=== PATIENT | female | born 1950 | race Caucasian/White ===

== ENCOUNTER 2017-10-29 09:51 | Outpatient (RCR) | payer MEDICARE | END 2017-11-01 | LOC: OT 09:51 | PROVIDERS: ATTEND Plastic Surgery | DX: M19.042 Primary osteoarthritis, left hand (principal); M79.642 Pain in left hand | CPT/HCPCS: G8987; G8988; G8989; L3913 ==

== ENCOUNTER → 2019-09-20 | Day surgery (SDC) | payer MEDICARE ==
[2019-09-15 11:26] LABS: BASOPHILS % 0.2 % (0.0-1.0); EOSINOPHILS # (AUTO) 0.1 (0.0-0.4); EOSINOPHILS % 1.7 % (0.0-6.0); HEMATOCRIT 33.9 % (34.2-44.1); HEMOGLOBIN 10.9 g/dL (12.0-16.0); LYMPHOCYTES # (AUTO) 1.5 (1.0-3.2); LYMPHOCYTES % 36.6 % (18.0-39.1); MEAN CORPUSCULAR HEMOGLOBIN 28.4 pg (28-32); MEAN CORPUSCULAR HGB CONC 32.2 g/dL (31-35); MEAN CORPUSCULAR VOLUME 88.3 fL (81-99); MONOCYTES # (AUTO) 0.3 (0.2-0.8); MONOCYTES % 7.5 % (4.4-11.3); NEUTROPHILS # (AUTO) 2.2 (2.1-6.9); NEUTROPHILS % 53.8 % (38.7-80.0); PLATELET COUNT 308 x10e3/uL (140-360); RED BLOOD COUNT 3.84 x10e6/uL (3.6-5.1)
--- NOTE | 2019-09-15 12:06 | Diagnostic Imaging Report ---
EXAMINATION: CHEST 2 VIEWS INDICATION: Pre-operative COMPARISON: None FINDINGS: LINES/TUBES:None LUNGS:The lungs are well-inflated. No focal consolidation or pulmonary edema. Right lower lobe calcified granuloma. PLEURA:No pleural effusion or pneumothorax. MEDIASTINUM:The cardiomediastinal silhouette appears normal in size and shape. BONES/SOFT TISSUES:No acute osseous injury. ABDOMEN:No free air under the diaphragm. IMPRESSION: No focal pneumonia or pulmonary edema. Signed by: Debra Mathis MD on 09/15/2019 12:03 PM
[~2019-09-20] MED LIST: BUPIVACAINE HCL 0.5% INJ 30 ML VIAL INJ ONE; CALCIUM CARBON500 MG PO; DEXAMETHASONE SOD PHOS INJ 4 MG/ML VIAL ONE; DIOVAN80 MG PO; ECOTRIN81 MG PO; EPHEDRINE SULFATE INJ 50 MG/10 ML SYR ONE; FENOFIBRATE145 MG PO; FENTANYL CITRATE/PF 100MCG/2 ML INJ ONE; GABAPENTIN400 MG PO; LIDOCAINE HCL 2% LOCAL INJ 5 ML SDV VIAL INJ ONE; MIDAZOLAM HCL 2 MG/2 ML VIAL ONE; MULTI-VITAMIN1 EACH PO; MUPIROCIN 2% OINT 22 GM TUBE ONE; ONDANSETRON HCL INJ 2MG/ML 2ML 2 MG/ML VIAL ONE; PANTOPRAZOLE SO40 MG PO; PROPOFOL IV EMULSION 10 MG/ML 20 ML VIAL ONE
--- OUTSIDE RECORDS SUMMARY | 2019-09-20 05:40 | XMS REPORT ---
Author [facility] Address Unknown Phone Unavailable Care Team Providers Care Physicist Nuclear Name Role Phone JEANNETTE MULLEN Unavailable Unavailable Problems This patient has no known problems. Allergies, Adverse Reactions, Alerts This patient has no known allergies or adverse reactions. Medications This patient has no known medications. Results Test Description Test Time Test Comments Text Results Atomic Results Result Comments CHEST 2 VIEWS 2019-09-15 12:02:00 [place] [address] Patient Name: MARS DE LA GARZA MR #: [id number] : 1950 Age/Sex: 69/F Req #: [id number] [facility] Physician: Ordered by: JEANNETTE MULLEN MD Report #: [id number] Location: OR Room/Bed: Procedure: [id number] DX/CHEST 2 VIEWS Exam Date: 09/15/19 Exam Time: 1105 REPORT STATUS: Signed EXAMINATION: CHEST 2 VIEWS INDICATION: Pre-operative COMPARISON: None FINDINGS: LINES/TUBES:None LUNGS:The lungs are well-inflated. No focal consolidation or pulmonary edema. Right lower lobe calcified granuloma. PLEURA:No pleural effusion or pneumothorax. MEDIASTINUM:The cardiomediastinal silhouette appears normal in size and shape. BONES/SOFT TISSUES:No acute osseous injury. ABDOMEN:No free air under the diaphragm. IMPRESSION: No focal pneumonia or pulmonary edema. Signed by: Aranza Mathis MD on 09/15/2019 12:03 PM Dictated By: ARANZA MATHIS MD 02 Transcribed By: CHRIS on 09/15/191202 COPY TO: JEANNETTE MULLEN MD
[2019-09-20] MEDS: CEFAZOLIN SOD 1 GM/NS 50ML 50 ML IV ONE (06:27)
[2019-09-20 09:05] VITALS: BP 115/63
--- NOTE | 2019-09-20 14:44 | Operative Report ---
DATE OF PROCEDURE: 09/20/2019 SURGEON: Piter Reeves MD PREOPERATIVE DIAGNOSES: 1. Ganglion cyst, right wrist. 2. Osteoarthritis with Heberden's nodes, right little finger DIP joint. POSTOPERATIVE DIAGNOSES: 1. Ganglion cyst, right wrist. 2. Osteoarthritis with Heberden's nodes, right little finger DIP joint. PROCEDURES: 1. Excision of cyst, right lateral wrist. 2. Arthrotomy and partial excision of osteophytes left little finger DIP joint. ANESTHESIA: General. INDICATION: The patient is a 69-year-old [id number] female, who has a symptomatic cyst located on the ulnar aspect of the right wrist at the location of the 6th dorsal compartment. She also has symptomatic degenerative arthritis of the left little finger DIP joint with Heberden's nodes and arthropathy. Risks, benefits, and alternatives of treatment were discussed with the patient. She is prepared to undergo the procedure as outlined. PROCEDURE IN DETAIL: The patient was marked preoperatively in the holding area. She was brought to the operating theater and after the induction of adequate general anesthesia, she is prepped and draped in a supine position and a time out is performed. The procedure was begun on the right side first. A longitudinal incision was marked over the 6th dorsal compartment directly over the prominence of the cyst. The right upper extremity was exsanguinated and the tourniquet inflated to a pressure of 250 mmHg. The incision was made through the skin and subcutaneous tissues. Venous tributaries were controlled with bipolar cautery. The branches of the ulnar sensory nerve were identified and retracted out of the way. The dissection continues directly onto the lateral aspect of the right wrist and the cyst was encountered directly emanating from the joint capsule. The cyst was dissected on all sides until its communicating stalk was identified tracing into the joint. At this point, the stalk is transected and the cyst was sent for permanent pathologic examination. The rent in the joint capsule was fulgurated with the bipolar cautery. The wound was irrigated with bacteriostatic saline and closed with a 5-0 nylon in interrupted horizontal mattress fashion and a Marcaine field block was performed at the operative site. A tourniquet was deflated. All the fingers pinked up nicely and a sterile bulky confirming bandage was applied. A Y-shaped incision was marked out over the dorsal aspect of the left little finger DIP joint. The left upper extremity was exsanguinated and tourniquet inflated to a pressure of 250 mmHg. The incision was made through the skin and subcutaneous tissues. Venous tributaries were controlled with bipolar cautery. The skin flaps were elevated off the extensor tendon mechanism, taking care to keep sufficient thickness to the flaps to maintain vascularity. At this point, the Heberden's nodes (osteophytes on either side of the DIP joint are readily identified). The extensor tendon mechanism is sharply incised at its lateral and medial aspects and then using a freer elevator is elevated off the middle and distal phalanges at the level of the DIP joint to accurately see the osteophytes. Using a rongeur the osteophytes were then removed in a piecemeal fashion. The wound was irrigated with bacteriostatic saline and once satisfactory contour of the bony structures was achieved, the tendon was allowed to retract into its nooksack position. The skin was closed with 5-0 nylon interrupted horizontal mattress fashion. A Marcaine field block was performed at the base of the left little finger. The tourniquet was deflated. All of the fingers pinked up nicely. A sterile bulky confirming bandage is applied to the tip of the left little finger. The patient tolerated the procedure well and was brought to recovery room in satisfactory condition and discharged with a postoperative instruction sheet as well as a followup appointment. MD KRISTINA Rodriguez/KAYE /[id number]
== END | disposition home or self-care (01) ==
LOC: OR 05:37
PROVIDERS: ATTEND Plastic Surgery
DX: M67.431 Ganglion, right wrist (principal); M15.1 Heberden's nodes (with arthropathy); I10 Essential (primary) hypertension; E78.5 Hyperlipidemia, unspecified; K21.9 Gastro-esophageal reflux disease without esophagitis; Z01.810 Encounter for preprocedural cardiovascular examination; Z01.812 Encounter for preprocedural laboratory examination; Z01.818 Encounter for other preprocedural examination
CPT/HCPCS: 25111; 26210; 36415; 71046; 85025; 88304; 93005; J0690; J1100; J2001; J2250; J2405; J2704; J3010

== ENCOUNTER → 2019-10-27 | Outpatient (CLI) | payer MEDICARE ==
[~2019-10-27] MED LIST changes: -BUPIVACAINE HCL 0.5% INJ 30 ML VIAL INJ ONE; -DEXAMETHASONE SOD PHOS INJ 4 MG/ML VIAL ONE; -EPHEDRINE SULFATE INJ 50 MG/10 ML SYR ONE; -FENTANYL CITRATE/PF 100MCG/2 ML INJ ONE; -LIDOCAINE HCL 2% LOCAL INJ 5 ML SDV VIAL INJ ONE; -MIDAZOLAM HCL 2 MG/2 ML VIAL ONE; -MUPIROCIN 2% OINT 22 GM TUBE ONE; -ONDANSETRON HCL INJ 2MG/ML 2ML 2 MG/ML VIAL ONE; -PROPOFOL IV EMULSION 10 MG/ML 20 ML VIAL ONE
--- NOTE | 2019-10-28 10:21 | Diagnostic Imaging Report ---
Right hand MRI without contrast. History: Hand pain. Fifth metacarpal region pain. Decreased range of motion. Comparison: None Technique: Multiplanar multisequence MRI of the hand without contrast. Findings: No acute fracture, subluxation or avascular necrosis. Scattered degenerative change most pronounced at the first carpal/metacarpal articulation. There is associated joint space narrowing, subchondral cystic change, bone marrow edema and peripheral osteophytosis. No osseous erosion. Small effusion and mild synovitis at the pisiform/triquetral articulation and at the distal ulna. No ligamentous or tendon tear is seen. The visualized neurovascular bundles are intact. The visualized muscles are normal in size, signal intensity and morphology. Impression: Small effusion and mild synovitis at the pisiform/triquetral articulation and at the distal ulna. The fifth metacarpal is intact. Scattered degenerative arthrosis. No osseous erosion. Signed by: Dr. Orlin Rojas M.D. on 10/28/2019 10:18 AM
== END ==
LOC: MRI 13:27
PROVIDERS: ATTEND Plastic Surgery
DX: M79.641 Pain in right hand (principal); M25.441 Effusion, right hand; M65.841 Other synovitis and tenosynovitis, right hand

== ENCOUNTER 2019-12-29 10:00 | Outpatient (RCR) | payer MEDICARE | END 2019-12-31 | LOC: OT 10:00 | PROVIDERS: ATTEND Plastic Surgery | DX: M79.641 Pain in right hand (principal); R53.1 Weakness ==

== ENCOUNTER 2020-01-26 10:51 | Outpatient (RCR) | payer MEDICARE | END 2020-01-31 | LOC: OT 10:51 | PROVIDERS: ATTEND Plastic Surgery | DX: M65.841 Other synovitis and tenosynovitis, right hand (principal); M25.441 Effusion, right hand | CPT/HCPCS: 97139 ==